=== PATIENT | female | born 1995 | race Caucasian/White ===

== ENCOUNTER 2016-11-15 02:16 | Inpatient (IN) | payer MEDICAID ==
[2016-11-15] MEDS ORDERED: Penicillin G Potassium IV* 5 MILLION.UNITS VIAL ONE (02:58)
[2016-11-15 03:08] LABS: Hematocrit 40 % (35-47); Hemoglobin 13.5 g/dl (12.0-16.0); Mean Corpuscular HGB Conc 34 g/dl (31-36); Mean Corpuscular Hemoglobin 28 pg (27-31); Mean Corpuscular Volume 84 fL (80-97); Mean Platelet Volume 8 um3 (7.4-10.4); Red Blood Count 4.77 10^6/ul (4.0-5.4); Red Cell Distribution Width 16 % (10.5-15); White Blood Count 10.8 10^3/ul (3.5-10.8)
[2016-11-15] MEDS ORDERED: fentaNYL* 50 MCG/ML 2 ML VIAL (100 MCG VIAL) ONE (03:17)
[2016-11-15] MEDS ORDERED: OBEPIDURAL* 250 ML ONE (03:17)
[2016-11-15] MEDS ORDERED: Sodium Citrate/Citric Acid* 15 ML UDC PO PRN (04:02)
[2016-11-15] MEDS ORDERED: Famotidine TAB* 20 MG PO PRN (04:02)
[2016-11-15] MEDS ORDERED: Phenylephrine IV* 40 MCG/ML 10 ML SYRINGE IV PUSH PRN ×2 (04:02)
[2016-11-15] MEDS ORDERED: OBEPIDURAL* 250 ML EPIDURAL SCH (05:00)
[2016-11-15] MEDS ORDERED: Glycerin ADULT SUPP PR PRN (08:18)
[2016-11-15] MEDS ORDERED: Dibucaine 1% 28.35 GM TUBE PR PRN (08:18)
[2016-11-15] MEDS ORDERED: Witch Hazel PAD* JAR TOPICAL PRN (08:18)
[2016-11-15] MEDS ORDERED: Oxytocin in LR* 0 UNITS/0 ML BAG IVPB ONE (08:30)
[2016-11-15] MEDS ORDERED: Simethicone CHEW TAB* 80 MG PO SCH (08:30)
[2016-11-15] MEDS ORDERED: Methylergonovine INJ* 0.2 MG/ML 1ML AMP IM ONE (08:48)
[2016-11-15] MEDS ORDERED: Oxytocin in LR* 20 UNITS/1,000 ML BAG IVPB SCH (09:00)
[2016-11-15] MEDS ORDERED: OXYTOCIN* 10 UNITS/ML 1 ML VIAL ONE (09:07)
[2016-11-15] MEDS: Ibuprofen TAB* 600 MG PO PRN ×2 (10:27→16:56)
[2016-11-15] MEDS: Docusate CAP* 100 MG PO SCH ×3 (14:26→20:31)
[2016-11-15] MEDS: Acetaminophen TAB* 325 MG PO PRN (20:31)
[2016-11-16] MEDS: Ibuprofen TAB* 600 MG PO PRN ×3 (00:38→21:24)
[2016-11-16] MEDS ORDERED: Tetan/Diph/Pertus SYR(Tdap)* 0.5 ML SYR(BOOSTRIX) use SYR IM ONE (09:00)
[2016-11-16] MEDS ORDERED: Ferrous Gluconate TAB* 324 MG TAB PO SCH (09:00)
[2016-11-16 09:32] LABS: Hematocrit 33 % (35-47); Hemoglobin 11.1 g/dl (12.0-16.0); Mean Corpuscular HGB Conc 33 g/dl (31-36); Mean Corpuscular Hemoglobin 28 pg (27-31); Mean Corpuscular Volume 85 fL (80-97); Mean Platelet Volume 8 um3 (7.4-10.4); Red Blood Count 3.92 10^6/ul (4.0-5.4); Red Cell Distribution Width 16 % (10.5-15); White Blood Count 9.9 10^3/ul (3.5-10.8)
[2016-11-16] MEDS: Docusate CAP* 100 MG PO SCH ×3 (09:46→21:24)
[2016-11-16] MEDS: Acetaminophen TAB* 325 MG PO PRN (15:54)
[2016-11-17] MEDS: Acetaminophen TAB* 325 MG PO PRN ×2 (00:26→09:15)
[2016-11-17] MEDS: Ibuprofen TAB* 600 MG PO PRN (05:16)
[2016-11-17] MEDS ORDERED: Influenza VAC *QUAD* 2017-18* 0.5 ML SYRINGE IM ONE (09:13)
[2016-11-17] MEDS: Docusate CAP* 100 MG PO SCH (09:16)
[2016-11-17 09:17] VITALS: BP 123/43
== END 2016-11-17 10:12 | disposition home or self-care (01) | DRG 560 ==
LOC: MCHOBOUT 02:16 → MCHOB 02:39
PROVIDERS: ADMIT Obstetrics & Gynecology; ATTEND Obstetrics & Gynecology
PROC: 10E0XZZ Delivery of Products of Conception, External Approach (ICD-10-PCS; principal; 2016-11-15)
PROC: 10907ZC Drainage of Amniotic Fluid, Therapeutic from Products of Conception, Via Natural or Artificial Opening (ICD-10-PCS; 2016-11-15)
PROC: 4A1HXCZ Monitoring of Products of Conception, Cardiac Rate, External Approach (ICD-10-PCS; 2016-11-15)
PROC: 0HQ9XZZ Repair Perineum Skin, External Approach (ICD-10-PCS; 2016-11-15)
PROC: 3E0234Z Introduction of Serum, Toxoid and Vaccine into Muscle, Percutaneous Approach (ICD-10-PCS; 2016-11-17)
DX: O70.0 First degree perineal laceration during delivery (principal); O72.1 Other immediate postpartum hemorrhage; O99.824 Streptococcus B carrier state complicating childbirth; Z3A.39 39 weeks gestation of pregnancy; Z37.0 Single live birth; Z23 Encounter for immunization
CPT/HCPCS: 36415; 85025; 86850; 86900; 86901; 90686; A9270-GY; J2210; J2540; J2590; J3010